=== PATIENT | female | born 1965 | race Caucasian/White ===

== ENCOUNTER → 2020-08-13 | Outpatient (CLI) | payer BC ==
[~2020-08-13] MED LIST: CEFAZOLIN2 GM/100 M IV; CRESTOR10 MG PO; HYDROCODON-ACE1 EAC7 PO; LEXAPRO 10 MG T10 M1 PO; MELOXICAM15 MG PO; ROBAXIN 750 MG750 MG PO
[2020-08-13 14:45] VITALS: BP 130/85
--- NOTE | 2020-08-13 15:53 | NUR ---
VAT CONSULTED FOR PICC PLACEMENT. RIGHT UPPER ARM BASILIC PICC PLACED, TRIMMED 41CM AND 2CM EXTERNAL. TIP LOCATION VERIFIED WITH 3CG CONFIRMATION. RELEASED FOR USE, PER HOSPITAL PROTOCOL.
[2020-08-13 16:02] LABS: HEMATOCRIT 38.5 % (37.0-47.0); HEMOGLOBIN 12.5 gm/dL (12.0-15.0); MCH 26.3 pg (26.0-34.0); MCHC 32.5 g/dL (28.0-37.0); MCV 80.9 fL (80.0-100.0); RBC 4.75 mil/uL (4.20-5.00); RDW 13.2 % (10.5-14.5); WBC 6.4 thou/uL (4.0-11.0)
[2020-08-13 16:15] LABS: ALBUMIN 3.3 g/dL (3.4-5.0); CALCIUM 9.3 mg/dL (8.5-10.1); CREATININE 0.9 mg/dL (0.6-1.0); POTASSIUM 4.2 mmol/L (3.5-5.1); TOTAL BILIRUBIN 0.5 mg/dL (0.2-1.0); TOTAL PROTEIN 7.8 g/dL (6.4-8.2)
--- NOTE | 2020-08-13 16:16 | NUR ---
IN FOR PICC LINE PLACEMENT AND 1ST DOSE OF CEFAZOLIN FOR DISCITIS THORACOLUMBAR REGION. ERIC FROM IV TEAM PLACED PICC IN PRIMITIVO. [facility]S FROM PICC LINE WITHOUT DIFFICULTY. TOLERATED INFUSION WITHOUT INCIDENT. PLAN IS TO DO INFUSIONS AT HOME WITH CIERA BLANCAS. DISMISSED IN STABLE CONDITION.
== END ==
LOC: OPONC 14:03
PROVIDERS: ATTEND Specialist
DX: M46.45 Discitis, unspecified, thoracolumbar region (principal)
CPT/HCPCS: 27000; 95000